=== PATIENT | male | born 1985 | race Caucasian/White ===

== ENCOUNTER 2019-05-01 16:36 | Emergency (ER) | payer MEDICAID ==
[~2019-05-01] VITALS: Ht 182.9 cm; Wt 113.4 kg
--- NOTE | 2019-05-01 17:50 | NUR ---
PT CAME INTO THE ED C/O FACIAL SWELLING AND TOOTH PAIN X 2 DAYS. PT AAOX4, VSS, BREATHING EVEN W/ NAD, AMBULATORY. WILL CONTINUE TO MONITOR
[2019-05-01] MEDS ORDERED: KETOROLAC TROMETHAMINE INJ 60 MG/2 ML VIAL IM ONE (18:30)
[2019-05-01] MEDS ORDERED: oxyCODONE/APAP (5/325 MG) 1 UDTAB TABLET PO ONE (18:30)
[2019-05-01] MEDS ORDERED: oxyCODONE/APAP (5/325 MG) 1 UDTAB TABLET ONE (18:31)
[2019-05-01] MEDS ORDERED: KETOROLAC TROMETHAMINE INJ 30 MG/ML VIAL ONE (18:31)
[2019-05-01 18:48] VITALS: BP 137/87
--- NOTE | 2019-05-01 18:48 | NUR ---
Patient discharged to home in stable condition. Written and verbal after care instructions given. Patient verbalizes understanding of instruction.
== END 2019-05-01 18:49 | disposition home or self-care (01) ==
LOC: ER 16:39
DX: K02.9 Dental caries, unspecified (principal)
CPT/HCPCS: 96372; 99283; J1885